=== PATIENT | female | born 1960 | race Two or more races ===

== ENCOUNTER → 2024-11-24 | Outpatient (CLI) | payer MEDICAID, SELFPAY ==
--- NOTE | 2024-11-24 09:33 | XR_ITS ---
Examination: Lumbar spine, 5 views Technique: Lumbar spine AP, lateral, coned lateral lower lumbar spine, bilateral obliques 5 views Exam date and time: November 24, 2024 0949 hours INDICATIONS: Lower back pain several months getting worse FINDINGS: Significant osteopenia Diffuse significant facet arthropathy Prominent lumbar spondylosis Mild disc narrowing L5-S1 No spondylolisthesis IMPRESSION: Prominent lumbar spondylosis No lumbar fracture
--- NOTE | 2024-11-24 09:33 | XR_ITS ---
EXAMINATION: Cervical spine, 5 views Technique: Cervical spine AP, AP odontoid, lateral, bilateral obliques, 5 views Exam date and time: October 28, 2024 0949 hours INDICATIONS: Neck pain several months getting worse FINDINGS: Adequate alignment cervical vertebral bodies Moderate disc narrowing C5-C6 Mild to moderate cervical spondylosis No cervical fracture Intact odontoid Mild to moderate bilateral neural foraminal stenosis C3-C4 Moderate left neural foraminal stenosis C5-C6 Intact odontoid IMPRESSION: Moderate degenerative disc disease C5-C6 Mild to moderate bilateral neural foraminal stenosis C3-C4 Moderate left neural foraminal stenosis C5-C6
== END | disposition home or self-care (01) ==
LOC: CDIM 09:25
PROVIDERS: PCP Student in an Organized Health Care Education/Training Program; Referring Provider Student in an Organized Health Care Education/Training Program; Visit Provider Student in an Organized Health Care Education/Training Program
DX: M50.322 Other cervical disc degeneration at C5-C6 level (principal); M48.02 Spinal stenosis, cervical region; M47.816 Spondylosis without myelopathy or radiculopathy, lumbar region; Z71.82 Exercise counseling
CPT/HCPCS: 72050; 72110

== ENCOUNTER 2025-02-05 12:00 | Day surgery (SDC) | payer MEDICAID, SELFPAY ==
[2025-02-04 13:29] VITALS: BMI 29.2
[2025-02-05] VITALS (11 sets, daily range): BP systolic 121–175; BP diastolic 71–109; PULSE 73–91; RESP 14–18; TEMP 36.7–36.8; O2SAT 98–100; BMI 33.6
[2025-02-05] MEDS: RINGERS LACTATED 1000 ML 1,000 ML 125 ML IV (13:01)
[2025-02-05] MEDS: fentaNYL CIT INJ 50 mCg/ML AMP 2ML (ASD USE ONLY) IV (13:02)
[2025-02-05] MEDS: MIDAZOLAM INJ 1 MG/ML VIAL 2 ML (ASD USE ONLY) 2 MG IV (13:03)
[2025-02-05] MEDS: DiphenhydrAMINE INJ 50 MG/ML VIAL 25 MG IV (13:04)
== END 2025-02-05 14:15 | disposition home or self-care (01) ==
PROVIDERS: PCP Student in an Organized Health Care Education/Training Program; Referring Provider Surgery; Visit Provider Surgery
PROC: 0DBE8ZX Excision of Large Intestine, Via Natural or Artificial Opening Endoscopic, Diagnostic (ICD-10-PCS; CPT 45380; principal; 2025-02-05 13:00)
DX: Z12.11 Encounter for screening for malignant neoplasm of colon (principal); K64.8 Other hemorrhoids
CPT/HCPCS: 45378; A4217; J1200; J2250; J3010; J7120

== ENCOUNTER 2025-03-11 11:00 | Outpatient (RCR) | payer MEDICAID, SELFPAY ==
--- NOTE | 2025-02-26 10:08 | PTNOTE_ITS ---
PT OP Initial Eval Patient Information Outpatient Physical Therapy Treatment Date: 02/26/25 Visit Reasons: Low back pain Medical Diagnosis: M54.50 Treatment Dx #1: neck pain Treatment Dx #2: LBP Start of Care: 02/26/25 Date of Onset: 1 yr ago Smoking Status Smoking Status: Never smoker Initial Assessment Subjective: Pt is 64 yr old greenlandic speaking female who reports neck and LBP x1 yr, not sure how it started. Pt reports pain with turning head and bending which limits HH chores such as sweeping and mopping. PLOF: pt was not limited by pain with HH chores and functional mobility. PMH: hypertension, depression, dementia Imaging: Xrays of C/S Moderate degenerative disc disease C5-C6, Mild to moderate bilateral neural foraminal stenosis C3-C4, Moderate left neural foraminal stenosis C5-C6. Pt goal: less pain Objective: C/S AROM: Flexion: 75% with posterior neck pain Extension: 30% of full with pain Rotation: 50% B TTP: mod/high of R upper trapezius Trunk ArOM: ? B SB 50% of normal with pain ? Extension: 20% with pain around L4-5, L5-S1 ? Flexion: 10 from floor with LBP ? B rotation: 60% with pain ? R SLR ROM: 45 deg. L SLR: 50 deg with LBP ? TTP: moderate/high paraspinals L5-S1 and R upper trap and cervical paraspinals. ? Neuro: B SLR: positive Assessment: Pt presents with high tissue irritability of C/S and L/S and limited ROM consistent with DDD. Pt may benefit from skilled therapy to meet goals and has fair rehab potential of C/S and poor of L/S due to osteophytes/spurs there. Short Term and Long-Term Goals 1. Ind with HEP 2. Decreased TTP of R UT and cervical paraspinals from high to min 3. Improved tolerance of HH chores to at least 30 mins with <=3/10 neck and LBP Treatment Plan 60 day POC 1. Manual therapy ? 2. Therex ? 3. Modalities as indicated, moist heat, ice, estim, mechanical traction Frequency and Duration: 1-2x a week for 8 Rx sessions plus evaluation Certification Dates: 02/26/25 to 04/27/25 Procedure Charges OP PT Eval Mod Complex 30 minutes: Yes
--- NOTE | 2025-03-04 10:48 | PT.ODAYNRPT ---
PT Outpatient Daily Note OP Daily Note Outpatient Physical Therapy Treatment Date: 03/04/25 Visit Reasons: Low back pain Subjective: Same as time of evaluation Objective: See F/S for therex MT: [facility] B UT's x5' Assessment: Good demo of levator scap stretches today Plan: Continue per POC Length of Time (minutes) of Treatment: 30 Minutes Procedure Charges Therapeutic Exercise 30 minutes: Yes
--- NOTE | 2025-03-09 11:23 | PT.ODAYNRPT ---
PT Outpatient Daily Note OP Daily Note Outpatient Physical Therapy Treatment Date: 03/09/25 Visit Reasons: Low back pain Subjective: Increased LBP today Objective: See F/S for therex MT: [facility] L/S paraspinals x5' Assessment: Good demo of prone extension stretches today Plan: Continue per POC Length of Time (minutes) of Treatment: 30 Minutes Procedure Charges Therapeutic Exercise 30 minutes: Yes
--- NOTE | 2025-03-11 11:34 | PT.ODAYNRPT ---
PT Outpatient Daily Note OP Daily Note Outpatient Physical Therapy Treatment Date: 03/11/25 Visit Reasons: Low back pain Subjective: Continued LBP and B shoulder pain Objective: See F/S for therex MT: [facility] B UT's x5' Assessment: Good demo of levator scap stretches today. Pt has a protrusion of superior shoulder over upper trap that is about as tender as the other side. Plan: Continue per POC Length of Time (minutes) of Treatment: 30 Minutes Procedure Charges Therapeutic Exercise 30 minutes: Yes
== END 2025-03-25 23:59 | disposition home or self-care (01) ==
LOC: CPTX 11:00
PROVIDERS: PCP Student in an Organized Health Care Education/Training Program; Referring Provider Student in an Organized Health Care Education/Training Program; Visit Provider Student in an Organized Health Care Education/Training Program
DX: M54.50 Low back pain, unspecified (principal); M50.322 Other cervical disc degeneration at C5-C6 level; M48.02 Spinal stenosis, cervical region; I10 Essential (primary) hypertension
CPT/HCPCS: 97110; 97162